=== PATIENT | female | born 1990 | race American Indian/Alaskan Native ===

== ENCOUNTER 2018-08-30 09:44 | Emergency (ER) | payer OTHER ==
[2018-08-30 09:56] VITALS: BP 127/87
[2018-08-30] MEDS ORDERED: TORADOL IM ONE (10:02)
[2018-08-30] MEDS ORDERED: ZOFRAN ODT PO ONE (10:03)
[2018-08-30] MEDS ORDERED: FIORICET PO ONE (10:03)
--- NOTE | 2018-08-30 10:04 | Emergency Department Report ---
ED Recheck HPI - General Chief Complaint: Headache Stated Complaint: MIGRANE/VOMIT Time Seen by Provider: 08/30/18 09:52 Source: patient Mode of arrival: Ambulatory Limitations: No Limitations - History of Present Illness Initial Comments: Patient is a 27-year-old female who comes to us from [place] with a migraine. She was seen here just a few days ago for the same. She states that she did not get her medication filled. She told the nurses in triage the medication was not working. However, she tells me that she did not get her Fioricet filled. She states that she gets discharged from [place] this week and will get the medicine. She reports her usual migraine symptoms that she woke up with. Associated with nausea and vomiting. She is having neither nausea or vomiting in the emergency room. She is ambulatory. She is sitting in the room with the lights on. Pt states she has anxiety at [place] which she thinks is causing the headache. Pt reports she has had previous CT/MRI at the [facility] in her home town. Pt has had no change since seen here last. No trauma. No fever. No other symptoms. VSS Afebrile Ambulatory and nontoxic. Complaint: other -: Gradual, days(s) Symptoms Since Prior Visit: no new symptoms Context: other (did not get meds filled) - Related Data Previous Rx's Medication Instructions Recorded Last Taken Type Butalb/Acetaminophen/Caffeine 1 cap PO Q8HR PRN #9 cap 08/19/18 Unknown Rx [Fioricet 50-300-40 mg CAP] Allergies Allergy/AdvReac Type Severity Reaction Status Date / Time No Known Allergies Allergy Unverified 08/19/18 10:51 ED Review of Systems ROS: Stated complaint: MIGRANE/VOMIT Other details as noted in HPI Comment: All other systems reviewed and negative Constitutional: denies: chills Eyes: denies: eye pain ENT: denies: ear pain Respiratory: denies: cough Cardiovascular: denies: palpitations Endocrine: denies: excessive sweating Gastrointestinal: as per HPI, nausea, vomiting. denies: abdominal pain Genitourinary: denies: urgency, dysuria Skin: denies: rash, lesions Neurological: as per HPI, headache Psychiatric: denies: depression Hematological/Lymphatic: denies: easy bleeding ED Past Medical Hx - Past Medical History Previous Medical History?: Yes Hx Headaches / Migraines: Yes Hx Psychiatric Treatment: Yes (Bi polar/Schizoaffective disorder) Additional medical history: BIPOLAR/SCHIZOAFFECTIVE. MIGRAINES - Surgical History Past Surgical History?: No - Family History Family history: no significant - Social History Smoking Status: Never Smoker Substance Use Type: None - Medications Home Medications: Home Medications Medication Instructions Recorded Confirmed Last Taken Type Butalb/Acetaminophen/Caffeine 1 cap PO Q8HR PRN #9 cap 08/19/18 Unknown Rx [Fioricet 50-300-40 mg CAP] ED Physical Exam - General Limitations: No Limitations General appearance: alert, in no apparent distress - Head Head exam: Present: atraumatic, normocephalic - Eye Eye exam: Present: normal appearance, PERRL, EOMI - ENT ENT exam: Present: normal exam, mucous membranes moist - Neck Neck exam: Present: normal inspection, full ROM - Respiratory Respiratory exam: Present: normal lung sounds bilaterally - Cardiovascular Cardiovascular Exam: Present: regular rate - GI/Abdominal GI/Abdominal exam: Present: soft, normal bowel sounds - Rectal Rectal exam: Present: deferred - Extremities Exam Extremities exam: Present: normal inspection, full ROM - Back Exam Back exam: Present: normal inspection, full ROM. Absent: CVA tenderness (R), CVA tenderness (L) - Neurological Exam Neurological exam: Present: alert, oriented X3, CN II-XII intact, normal gait, reflexes normal, other (global headache consistent with pts usual migraine. she had no aura. ). Absent: abnormal gait, motor sensory deficit - Psychiatric Psychiatric exam: Present: normal affect, normal mood - Skin Skin exam: Present: warm, dry, intact ED Course Vital Signs 08/30/18 09:55 Temperature 98.3 F Pulse Rate 84 Respiratory 18 Rate Blood Pressure 127/87 O2 Sat by Pulse 97 Oximetry ED Recheck MDM - Core Measures Measure Exclusions: not indicated - Medical Decision Making seen here the other day for same. This is her usual migraine She has no focal neuro deficit. Ambulatory. VSS no fever no meningeal signs. Vital Signs (72 hours) 08/30/18 09:55 Temperature 98.3 F Pulse Rate 84 Respiratory 18 Rate Blood Pressure 127/87 O2 Sat by Pulse 97 Oximetry Critical care attestation.: If time is entered above; I have spent that time in minutes in the direct care of this critically ill patient, excluding procedure time. ED Disposition Clinical Impression: Migraine Disposition: DC- TO HOME OR SELFCARE Is pt being admited?: No Does the pt Need Aspirin: No Condition: Stable Instructions: Ocular Migraine (ED) Additional Instructions: MOTRIN OR TYLENOL FOR PAIN HYDRATE WELL WITH WATER GET YOUR MED REFILLED AND TAKE INSTRUCTED MED ORDERED TODAY FOLLOW UP WITH LOCAL PCP REFERRAL BELOW. DIET AND ACTIVITY TOLERATED Referrals: [facility] [Primary Care Provider] - 3-5 Days Time of Disposition: 10:15
== END 2018-08-30 10:26 | disposition home or self-care (01) ==
LOC: ED 09:44
DX: G43.909 Migraine, unspecified, not intractable, without status migrainosus (principal); F41.9 Anxiety disorder, unspecified
CPT/HCPCS: 96372; 99282; J1885; Q0162